=== PATIENT | male | born 1960 | race Caucasian/White ===

== ENCOUNTER 2019-07-01 09:45 | Day surgery (SDC) | payer BC ==
[~2019-07-01] VITALS: Ht 177.8 cm; Wt 70.9 kg
[~2019-07-01 09:45] MED LIST: ACET-2119 PO; OMEPRAZOLE PO; ONDA4TAB6 PO; SERT-153 PO; SUCR1TAB34 PO
[2019-07-01 10:00] VITALS: BP 156/85
[2019-07-01] MEDS ORDERED: fentaNYL/PF 50MCG/1 ML 2ML syringe ONE ×2 (10:02→10:03)
[2019-07-01] MEDS ORDERED: LIDOcaine Viscous 15ml cup ONE (10:03)
[2019-07-01] MEDS ORDERED: MIDAZolam 5mg/5ml vial ONE (10:03)
[2019-07-01] MEDS ORDERED: IBUPROFEN PO (10:27)
[2019-07-01] MEDS ORDERED: LACT10SO PO (10:28)
[2019-07-01 11:06] VITALS: BP 121/74
[2019-07-01 11:16] VITALS: BP 120/76
[2019-07-01 11:26] VITALS: BP 111/75
[2019-07-01 11:36] VITALS: BP 122/73
[2019-07-01 11:46] VITALS: BP 121/77
== END 2019-07-01 12:00 | disposition home or self-care (01) ==
LOC: GI LAB 09:45
PROVIDERS: ATTEND Internal Medicine Gastroenterology
DX: I85.00 Esophageal varices without bleeding (principal); K20.8 Other esophagitis; K76.6 Portal hypertension; K31.89 Other diseases of stomach and duodenum; K44.9 Diaphragmatic hernia without obstruction or gangrene; K57.10 Diverticulosis of small intestine without perforation or abscess without bleeding; K29.50 Unspecified chronic gastritis without bleeding
CPT/HCPCS: 43239; 99152; J2250; J3010; J7040; A4620

== ENCOUNTER 2024-01-27 10:42 | Emergency (ER) | payer BC ==
[~2024-01-27] VITALS: Ht 180.3 cm; Wt 70.5 kg
[~2024-01-27 10:42] MED LIST changes: +IBUPROFEN PO; +LACT-373 PO; -OMEPRAZOLE PO; -ONDA4TAB6 PO; -SERT-153 PO; -SUCR1TAB34 PO
[2024-01-27 10:50] VITALS: TEMP 98.4
[2024-01-27 11:27] LABS: BASOPHILS % (AUTO) 0.9 % (0-1); EOSINOPHILS % (AUTO) 0.6 % (0-6); HEMATOCRIT 44.5 % (42.0-52.0); HEMOGLOBIN 15.7 g/dl (14.0-17.9); LYMPHOCYTES % (AUTO) 23.7 % (21-51); MEAN CORPUSCULAR HEMOGLOBIN 36.2 PG (27.0-31.0); MEAN CORPUSCULAR HGB CONC 35.2 g/dL (33.0-36.5); MEAN PLATELET VOLUME 6.6 FL (7.4-10.4); MONOCYTES # (AUTO) 0.5 X10'3 (0-0.9); MONOCYTES % (AUTO) 11.4 % (2-12); NEUTROPHILS # (AUTO) 2.5 X10'3 (1.8-7.7); NEUTROPHILS % (AUTO) 63.4 % (42-75); PLATELET COUNT 174 X10'3 (140-440); RED BLOOD COUNT 4.32 X10'6 (4.70-6.10); RED CELL DISTRIBUTION WIDTH 13.3 % (11.5-14.5)
[2024-01-27 11:42] LABS: ANION GAP 10 (8-16); BILIRUBIN,TOTAL 1.4 MG/DL (0.1-1.0); BLOOD UREA NITROGEN 10 MG/DL (7-18); BUN/CREATININE RATIO 11.8 (10.0-20.0); CALCIUM 9.3 MG/DL (8.5-10.1); CHLORIDE 102 MMOL/L (99-107); CREATININE 0.85 MG/DL (0.60-1.10); GLUCOSE 85 MG/DL (70-104); POTASSIUM 3.6 MMOL/L (3.5-5.1); SODIUM 138 MMOL/L (135-145); TOTAL CARBON DIOXIDE 25.7 MMOL/L (24-32); eCRCL 87 ML/MIN; eGFR > 90 ML/MIN
[2024-01-27 11:43] LABS: ALANINE AMINOTRANSFERASE 47 U/L (12-78); ALBUMIN 3.1 G/DL (3.4-5.0); ALBUMIN/GLOBULIN RATIO 0.5 (1.1-1.5); ALKALINE PHOSPHATASE 167 IU/L (46-116); ASPARTATE AMINO TRANSFERASE 42 U/L (10-37); TOTAL PROTEIN 8.9 G/DL (6.4-8.2)
[2024-01-27 11:49] LABS: PRO BRAIN NATRIURETIC PEPTIDE 496 PG/ML (0-125)
[2024-01-27] MEDS ORDERED: ALBU8HFA INH (12:17)
[2024-01-27 12:20] VITALS: BP 151/85; PULSE 59; RESP 16; O2SAT 98
== END 2024-01-27 12:27 | disposition home or self-care (01) ==
LOC: ER 10:42
DX: R06.00 Dyspnea, unspecified (principal); F41.9 Anxiety disorder, unspecified; F32.A Depression, unspecified; Z98.890 Other specified postprocedural states; Z79.1 Long term (current) use of non-steroidal anti-inflammatories (NSAID)
CPT/HCPCS: 36415; 71045; 80053; 83880; 84484; 85025; 93005; 99285

== ENCOUNTER 2024-06-20 10:40 | Inpatient (IN) | payer BC ==
[~2024-06-20] VITALS: Ht 180.3 cm; Wt 69.0 kg
[2024-06-20 11:00] LABS: BASOPHILS % (AUTO) 1.4 % (0-1); EOSINOPHILS % (AUTO) 0.8 % (0-6); HEMOGLOBIN 14.6 g/dl (14.0-17.9); LYMPHOCYTES # (AUTO) 0.7 X10'3 (1.1-4.8); LYMPHOCYTES % (AUTO) 21.8 % (21-51); MEAN CORPUSCULAR HEMOGLOBIN 35.9 PG (27.0-31.0); MEAN CORPUSCULAR VOLUME 105.4 FL (78-98); MEAN PLATELET VOLUME 6.7 FL (7.4-10.4); MONOCYTES # (AUTO) 0.4 X10'3 (0-0.9); MONOCYTES % (AUTO) 11.2 % (2-12); NEUTROPHILS # (AUTO) 2.1 X10'3 (1.8-7.7); NEUTROPHILS % (AUTO) 64.8 % (42-75); PLATELET COUNT 122 X10'3 (140-440); RED BLOOD COUNT 4.08 X10'6 (4.70-6.10); WHITE BLOOD COUNT 3.3 X10'3 (4.5-11.0)
--- NOTE | 2024-06-20 11:16 | RADIOLOGY REPORT ---
CHEST RADIOGRAPH Indication: CP Technique: Single frontal view of the chest was obtained Comparison: DI CHEST,SINGLE VIEW on DOS: 01/27/24 FINDINGS: The cardiac silhouette is unremarkable. The lungs demonstrate no pulmonary airspace consolidation. Th e pulmonary vasculature is unremarkable. There is no pleural effusion.. There is no pneumothorax. Ao rtic atherosclerotic disease. IMPRESSION: 1. No pulmonary airspace consolidation.<< >>
[2024-06-20 11:22] LABS: ALANINE AMINOTRANSFERASE 37 U/L (12-78); ALBUMIN 3.1 G/DL (3.4-5.0); ALBUMIN/GLOBULIN RATIO 0.7 (1.1-1.5); ALKALINE PHOSPHATASE 220 IU/L (46-116); ANION GAP 6 (8-16); ASPARTATE AMINO TRANSFERASE 63 U/L (10-37); BILIRUBIN,TOTAL 1.3 MG/DL (0.1-1.0); BLOOD UREA NITROGEN 10 MG/DL (7-18); BUN/CREATININE RATIO 10.5 (10.0-20.0); CALCIUM 8.6 MG/DL (8.5-10.1); CHLORIDE 108 MMOL/L (99-107); CREATININE 0.95 MG/DL (0.60-1.10); GLUCOSE 83 MG/DL (70-104); POTASSIUM 3.4 MMOL/L (3.5-5.1); SODIUM 142 MMOL/L (135-145); TOTAL CARBON DIOXIDE 27.6 MMOL/L (24-32); TOTAL PROTEIN 7.6 G/DL (6.4-8.2); eCRCL 77 ML/MIN; eGFR 80 ML/MIN
[2024-06-20 11:27] LABS: PRO BRAIN NATRIURETIC PEPTIDE 405 PG/ML (0-125)
[2024-06-20 11:36] LABS: D-DIMER 2.21 MG/L FEU (0-0.50)
[2024-06-20] MEDS ORDERED: iohexol 350MG/ML 100ml bottle IV ONE (12:09)
--- NOTE | 2024-06-20 12:13 | ELECTROCARDIOGRAPH REPORT ---
[facility] Test Date: 2024-06-20 Test Time: 10:50:23 Pat Name: AJ TYLER Department: EMERGENCY ROOM Room: ED 4 Gender: M Python Programmer: LUIS ALBERTO : 1960 Requested By: ADIEL RALPH Order Number: [id number] Reading MD: Dr. Troy Jamil Measurements Intervals [place] Rate: 78 P: 4 OK: 164 QRS: 85 QRSD: 96 T: 66 QT: 416 QTc: 474 Interpretive Statements Sinus rhythm Multiple premature complexes, vent & supraven Low voltage, extremity leads Nonspecific repol abnormality, lateral leads Electronically Signed On 06-22-2024 15:44:[address] Troy Jamil Please click the below link to view image of tracing.
--- NOTE | 2024-06-20 13:09 | RADIOLOGY REPORT ---
CTA Chest with intravenous contrast INDICATION: Exertional dyspnea, elevated D-dimer COMPARISON: None TECHNIQUE: Multidetector spiral CTA of the chest was performed of the chest with intravenous contrast . PULMONARY ANGIOGRAPHY PROTOCOL was utilized using a bolus-tracking technique centered on the main p ulmonary artery. Axial, coronal and sagittal multiplanar and MIP reformats were performed. CONTRAST: Type of contrast: Omni 300 Contrast injected: 100 ml Radiation dose : Chest: CTDI volume is 12 mGy. Dose-length product is 457 mGy*cm The dose indicators for CT are the volume computed Tomography (CT) dose Index (CTDIvol) and the dose Length product (DLP), and are measured in units of mGy and mGy-cm, respectively. These indicators are not patient dose, but values generated from the CT scanner acquisition factors. The report includes radiation exposure data for exposures received during this examination. Findings: Pulmonary artery: Acute bilateral pulmonary emboli involving the main pulmonary arteries as well as both upper and lowe r lobe segmental branches. Large clot burden. No evidence of right heart strain. Filling defect in t he right atrium is likely mixing artifact. Lower neck: Normal thyroid. Lungs: Mild subpleural consolidation in the right lower lobe. Atelectasis and scarring in the lung ba ses. Heart/Vascular Structures: Normal heart size. No pericardial effusion. Lymph Nodes: No adenopathy Pleura: No pleural effusion or significant pneumothorax. Musculoskeletal: Chronic appearing compression deformity of L1. Soft tissues: Normal. Upper abdomen: Cirrhotic liver morphology. Perihepatic ascites. Cholelithiasis. Splenomegaly. IMPRESSION: 1. Acute bilateral pulmonary emboli. Large amount of thrombus. No evidence of right heart strain. Fi lling defect in the right atrium is thought to represent mixing artifact although right atrial thromb us is not excluded. 2. Mild subpleural consolidation in the right lower lung. 3. Cirrhotic liver morphology. Perihepatic ascites. Cholelithiasis. Splenomegaly. Critical Result: Pumonary Emboli Findings discussed with ADIEL RALPH at 06/20/2024 01:04 PM, and acknowledged receipt and under standing of the findings. HS:Y
[2024-06-20] MEDS ORDERED: heparin 10,000 units/1 ML INJ IV ONE (13:10)
[2024-06-20] MEDS ORDERED: heparin 10,000 units/1 ML INJ IV PRN (13:10)
[2024-06-20] MEDS: heparin 10,000 units/1 ML INJ IV ONE (13:36)
[2024-06-20] MEDS: heparin 25,000 UNIT/250ml bag 250 ML IV PRN (13:38)
[2024-06-20] MEDS: MESSAGE TO NURSING IV ONE ×2 (13:39→23:30)
[2024-06-20] MEDS ORDERED: ondansetron/PF 4mg/2ml inj IV PRN (13:45)
[2024-06-20] MEDS ORDERED: diphenhydrAMINE 50 mg/ml inj IV PRN (13:45)
[2024-06-20] MEDS ORDERED: magnesium sulf-water 4G/100mL 100 ML IV PRN (13:45)
[2024-06-20] MEDS ORDERED: HYDROcodone/acetaminophen 10/325mg tab PO PRN (13:45)
[2024-06-20] MEDS ORDERED: potassium Cl 20 mEq SR tablet PO PRN ×2 (13:45)
[2024-06-20] MEDS ORDERED: mag hydrox/Alum hydrox/simeth 30ml oral suspension PO PRN (13:45)
[2024-06-20] MEDS ORDERED: morphine 2 MG/ML inj. syringe IV PRN ×2 (13:45)
[2024-06-20] MEDS ORDERED: HYDROcodone/acetaminophen 5mg/325mg tablet PO PRN (13:45)
[2024-06-20] MEDS ORDERED: acetaminophen 325mg tablet PO PRN ×2 (13:45)
[2024-06-20] MEDS ORDERED: magnesium sulf-water 2g/50mL 50 ML IV PRN (13:45)
[2024-06-20] MEDS ORDERED: ondansetron 4mg rapidly disintigrating tab PO PRN (13:45)
[2024-06-20] MEDS ORDERED: diphenhydrAMINE 25mg capsule PO PRN (13:45)
[2024-06-20] MEDS ORDERED: magnesium Cl slow-release 64mg tablet PO PRN (13:45)
[2024-06-20] MEDS ORDERED: acetaminophen 650mg rectal suppository RC PRN (13:45)
[2024-06-20] MEDS ORDERED: bisacodyl 10mg suppository rectal RC PRN (13:45)
[2024-06-20] MEDS ORDERED: magnesium hydroxide 30ml (MOM) UD suspension PO PRN (13:45)
[2024-06-20] MEDS ORDERED: potassium Cl 40MEQ/1/2NS 520ml 520 ML IV PRN (13:45)
[2024-06-20] MEDS: potassium Cl 20mEq in NS 1,000 ML IV SCH (14:24)
[2024-06-20 14:38] LABS: BILIRUBIN,URINE NEGATIVE (Neg); CLARITY,URINE CLEAR (Clear); COLOR,URINE YELLOW (Yellow); GLUCOSE, URINE NEGATIVE (Neg); KETONES,URINE NEGATIVE (Neg); LEUKOCYTE ESTERASE ,URINE NEGATIVE (Neg); NITRITES, URINE NEGATIVE (Neg); OCCULT BLOOD,URINE NEGATIVE (Neg); PH,URINE 6.5 (4.8-8.0); PROTEIN,URINE NEGATIVE (Neg)
[2024-06-20 14:55] LABS: MAGNESIUM 1.8 MG/DL (1.5-2.4); PHOSPHORUS 3.9 MG/DL (2.3-4.5)
[2024-06-20 14:57] LABS: UA COLLECTION TYPE NON-SPECIFIED
[2024-06-20] MEDS ORDERED: AMOX-445 PO (14:58)
[2024-06-20 15:13] LABS: HEMOGLOBIN A1C 5.1 % (4.5-6.2)
--- NOTE | 2024-06-20 15:23 | VASCULAR REPORT ---
Bilateral lower extremity venous Doppler INDICATION: Bilateral lower extremity pain and shortness of breath TECHNIQUE: Duplex venous sonography was performed with real-time and flow sensitive images submitted for evaluation. FINDINGS: Normal phasic venous flow. Veins are fully compressible. No filling defects. IMPRESSION: 1. No evidence of deep vein thrombosis.
[2024-06-20 15:39] VITALS: BP 141/100; PULSE 90; RESP 15; TEMP 97.4; O2SAT 99
--- NOTE | 2024-06-20 16:00 | Physician Documentation ---
History of Present Illness ~ Chief Complaint: Shortness of Breath Stated Complaint: THROMBUS IN HEART Time Seen by MD: 11:05 Primary Medical Doctor: formerly [facility], 1928–1983khadijah Mode of Arrival: Ambulatory HPI This is a 63-year-old gentleman sent to us from Dr. Alex office after they discovered abnormal ultrasound of his heart on echocardiogram. There were concern on a clot in his heart. The gentleman subjective complaints include severe shortness a breath especially with exertion. No positional changes. The symptoms has been present for about a week. He also reports lower extremity swelling for the same duration of time. Does report chest discomfort but denies any proper pain. Denies any fever, chills, nausea, vomiting, diarrhea, abdominal pain. Medication Reconciliation Allergies: Coded Allergies: No Known Allergies (Unverified , 01/27/24) Scheduled Amoxicillin (Amoxicillin), 1 CAP PO TID, (Reported) Discontinued Medications Acetaminophen (Tylenol), 1 TABLET PO Q4HPRN PRN for pain, (Reported) Discontinued Reason: patient no longer taking Lactulose (Lactulose), 30 ML PO QAM, (Reported) Discontinued Reason: patient no longer taking [Ibuprofen], PO for pain, (Reported) Discontinued Reason: patient no longer taking Past Medical History Past Medical History: Anxiety, Depression Past Surgical History: orthopedic surgeries Alcohol Use: None Drug Use: none Lives In: Home Review of Systems ROS 10 point review of systems was performed and unless noted above in HPI is negative for acute process/complaint. Physical Exam Vital Signs: Temperature: 97.9, Source: Oral, Heart Rate: 92, Respiratory Rate: 17, BP: 150/95, Pulse Oximetry: 98, Weight: 69.000 Oxygen Flow Rate: 0 Physical Exam GENERAL: Awake, alert, oriented, GCS 15, no apparent distress, non-toxic appearing, answers questions, follows commands appropriately. HEENT: Atraumatic, normocephalic, pupils equal, extraocular muscles intact, sclerae anicteric, mucus membranes moist, oropharynx is clear, no stridor. NECK: supple, full active range of motion, trachea midline, no thyromegaly, no lymphadenopathy, no JVD. CARDIOVASCULAR: regular rate/rhythm, no murmurs/gallops/rubs, Pulses are 2+ in all extremities and symmetric. Capillary refill less than 2 seconds. PULMONARY: Nonlabored, good air movement ,no respiratory distress, speaking in full sentences, clear to auscultation bilaterally, no wheezing, no ronchi, no rales, no accessory muscle use. GASTROINTESTINAL: Soft, non-tender, non-distended, normal active bowel sounds, no organomegaly, no pulsatile masses, no CVA tenderness. NEUROLOGIC: Lucid with normal mental status. Normal facial symmetry. Moves all extremities symmetrically and with purpose. No truncal ataxia. Speech is fluid without evidence of dysarthria or aphasia, no focal deficits appreciated. MUSCULOSKELETAL: There is full range of motion of all extremities. There is no joint pain or joint swelling or joint erythema. There is no muscle pain or tenderness or swelling. EXTREMITIES: warm, well-perfused, no cyanosis, no clubbing, no edema, no acute deformities. Skin: warm, dry, no rashes or lesions, no jaundice, no petechiae orpurpura. No ecchymosis. PSYCHIATRIC: Normal affect, normal insight, normal concentration. Focused exam: [] Progress Results/Orders Results/Orders Orders - ADIEL RALPH DO Chest,Single View (06/20/24 11:02) Monitor (06/20/24 10:51) Saline Lock (06/20/24 10:51) Oxygen (06/20/24 10:51) Cta Chest Pe (06/20/24 12:25) Pt Inr (06/20/24 13:07) PTT (06/20/24 13:07) Cbc/Diff (06/20/24 13:07) Heparin 25,000 Unit/250ml Bag (Heparin 2 (06/20/24 13:10) Heparin 10,000 Unit/Ml 1ml (Heparin 10,0 (06/20/24 13:10) Cbc/Diff (06/21/24 03:00) Cbc/Diff (06/22/24 03:00) Cbc/Diff (06/23/24 03:00) Cbc/Diff (06/24/24 03:00) Cbc/Diff (06/25/24 03:00) Completed Orders - ADIEL RALPH DO Chest,Single View (06/20/24 11:02) Cbc/Diff (06/20/24 10:51) PBNP (06/20/24 10:51) Electrocardiogram (06/20/24 10:51) CMP (06/20/24 10:51) Hs Troponin I W Calculations (06/20/24 10:51) Hs Troponin I W Calculations (06/20/24 12:51) Hs Troponin I W Calculations (06/20/24 13:51) D-Dimer (06/20/24 11:05) Cta Chest Pe (06/20/24 12:25) Iohexol 350mg/Ml 100ml (Omnipaque 350mg/ (06/20/24 12:09) Heparin 10,000 Unit/Ml 1ml (Heparin 10,0 (06/20/24 13:25) Message To Nursing (06/20/24 13:30) Hgb A1c (06/20/24 10:49) MG (06/20/24 10:49) PHOS (06/20/24 10:49) Medications Received in ER Medications (Trade) Dose Ordered Sig/Andrew Route PRN Reason Start Time Stop Time Status Last Admin Dose Admin Heparin Sodium/ Dextrose 250 ml @ 12 mls/hr [id number] PRN IV TO MAINTAIN PTT WITHIN RANGE 06/20/24 13:10 06/20/24 13:38 12 MLS/HR (heparin 10,000 unit/ml 1ml inj) 5,500 units ONCE ONCE IV 06/20/24 13:25 06/20/24 13:26 DC 06/20/24 13:36 5,500 UNITS Potassium Chloride/Sodium Chloride 1,000 ml @ 100 mls/hr Q10H IV 06/20/24 13:45 06/20/24 14:24 100 MLS/HR Vital Signs 06/20/24 06/20/24 06/20/24 06/20/24 10:42 11:06 11:09 11:52 Temp 97.9 97.9 Pulse 61 77 68 Resp 17 16 16 13 B/P (MAP) 148/89 130/86 (101) 130/86 (101) Pulse Ox 100 99 98 O2 Flow Rate 0 0 0 06/20/24 06/20/24 13:04 14:00 Temp 97.9 Pulse 86 92 Resp 17 17 B/P (MAP) 130/86 (101) 150/95 (113) Pulse Ox 98 98 O2 Flow Rate 0 0 Laboratory Tests Test 06/20/24 10:49 06/20/24 13:26 06/20/24 13:51 06/20/24 14:20 White Blood Count 3.3 L Red Blood Count 4.08 L Hemoglobin 14.6 Hematocrit 43.0 Mean Corpuscular Volume 105.4 H Mean Corpuscular Hemoglobin 35.9 H Mean Corpuscular Hemoglobin Concent 34.0 Red Cell Distribution Width 16.0 H Platelet Count 122 L Mean Platelet Volume 6.7 L Neutrophils (%) (Auto) 64.8 Lymphocytes (%) (Auto) 21.8 Monocytes (%) (Auto) 11.2 Eosinophils (%) (Auto) 0.8 Basophils (%) (Auto) 1.4 H Neutrophils # (Auto) 2.1 Lymphocytes # (Auto) 0.7 L Monocytes # (Auto) 0.4 Eosinophils # (Auto) 0.0 Basophils # (Auto) 0.0 CBC Comment D-Dimer 2.21 H D-Dimer Comment Sodium Level 142 Potassium Level 3.4 L Chloride Level 108 H Carbon Dioxide Level 27.6 Anion Gap 6 L Blood Urea Nitrogen 10 Creatinine 0.95 Estimated GFR/1.73 m2 80 BUN/Creatinine Ratio 10.5 Glucose Level 83 Hemoglobin A1c 5.1 Calcium Level 8.6 Phosphorus Level 3.9 Magnesium Level 1.8 Total Bilirubin 1.3 H Aspartate Amino Transf (AST/SGOT) 63 H Alanine Aminotransferase (ALT/SGPT) 37 Alkaline Phosphatase 220 H Troponin I High Sensitivity 12 15 12 Pro-B-Type Natriuretic Peptide 405 H Total Protein 7.6 Albumin 3.1 L Globulin 4.5 H Albumin/Globulin Ratio 0.7 L Chemistry Comments Troponin I High Sens Percent Delta 25 0 Troponin I Hi Sens Absolute Change 3 0 Urine Specimen Description Non-specified Urine Color Yellow Urine Clarity Clear Urine pH 6.5 Urine Specific [place] <=1.005 Urine Protein Negative Urine Glucose (UA) Negative Urine Ketones Negative Urine Occult Blood Negative Urine Nitrite Negative Urine Bilirubin Negative Urine Urobilinogen 1.0 Urine Leukocyte Esterase Negative Urine Culture Indicated Not ind Volume Urine Centrifuged 10 ml Urine Comment Medical Decision Making Findings Facility Status: ED Holds, [facility] process The plan was discussed with the patient, who demonstrates clear understanding of the plan and is in agreement with the plan unless otherwise noted in the chart. All questions have been answered, all concerns were addressed unless otherwise documented. I was available throughout their ED stay for frequent reassessment and questions. Differential Diagnoses (considered and possible or likely): [DVT, PE, mural thrombus, atrial thrombus, ventricular thrombus, ACS, pneumonia,] ??Differential Diagnoses (considered and unlikely, not requiring evaluation currently): [Aortic/great vessels dissection was considered but it is unlikely based on absence of ripping, tearing, migratory chest pain, absence of syncope or focal neurologic deficits, physical examination indicating equal and symmetric pulses.] MDM Data Please see HPI for the following: Independent Historians and external Records Review. Historian: [Patient] Independent Historians: ?[Record review] Medication Management: [Reviewed medication list] Social History and determinants: [Reviewed] Please see the body of the note for the following: Any independent interpretations of ECG, imaging studies. All vitals signs/haemodynamics, ordered tests were independently reviewed and interpreted by myself. Nursing triage complaint and vitals reviewed, additional nursing notes were reviewed as available and I agree unless otherwise noted or documented in contradiction in the chart Vital Signs: Independently reviewed Labs: Independently interpreted Imaging: Independently interpreted Old Medical Records: Independently reviewed, see [facility] for relevant summary and information Pulse Oximetry: [92%] interpreted as [normal on room air] by me [Belt Turner: [Regular Rate, Regular rhythm, no ectopy, NSR] reviewed and interpreted by me] Additionally notably showing: [Hematologic workup notable for elevated D-dimer. CT shows bilateral PEs and a thrombus in the heart.] Tests considered but not ordered include: [Echo can be done on an inpatient basis as well as a vascular DVT] Social Determinants of Health Impact: Patient was evaluated in [facility], [facility] [place] healthcare due to below par ratio of patient to medical providers. [] Comorbid Conditions Impacting Present Evaluation and Care/Treatment: [See list] Management Discussions with other Healthcare Providers: [Hospitalist regarding admission] Treatment and Disposition Medication Management (Given or considered): [Heparin drip]. See EMR for details Consideration for Hospitalization/Escalation/Deescalation of Care: Admission for observation has been considered, and appears to be necessary for further management and evaluation of his bilateral PEs and the intracardiac thrombus ?ED Course:?[No clinical deterioration] ?Shared decision making:?[] Code status:?FULL Please see the full Electronic Medical Record for full details of nursing documentation, medications list, other records of complete past medical history and conditions, vital signs, laboratory studies, and any radiologic study interpretations by radiologists. Portions of this note were completed using [employer] dictation software and as a result there may exist minor errors in spelling. I have reviewed elements of past family and social history and agree as included in note. Departure Disposition: 09 ADMITTED INPATIENT Impression: Primary Impression: Bilateral pulmonary embolism Additional Impressions: Thrombus in heart chamber Exertional dyspnea Referrals: NO PRIMARY CARE PROVIDER (PCP) Critical Care Note Critical Care Note CRITICAL CARE TIME: [ 45] minutes Treatments/Evaluations: Close monitoring and treatment of unstable vital signs, cardiorespiratory, and neurologic status, while maintaining tight balance of fluid, respiratory, and cardiac interventions. This time includes discussing the case with the patient and the patient�s family. This time does not include all procedures stated elsewhere in this record. This time also includes reviewing old records, labs and radiological studies. This time includes examining and re- examining the patient. Additionally, this time also includes arranging care with admitting and consulting physicians. Signature Scribe Signature: No scribe Attestation: This note accurately reflects clinical decisions, work performed by myself, DO LOREE Correa NICHOLAS M DO June 20, 2024 16:00
[2024-06-20] MEDS ORDERED: LORazepam 2 mg/ml vial IV PRN (16:05)
[2024-06-20] MEDS ORDERED: dextrose 50%-water 50ml dispensing syringe IV PRN (16:05)
[2024-06-20] MEDS ORDERED: haloperidol lactate 5mg/ml inj IM PRN (16:05)
[2024-06-20] MEDS ORDERED: haloperidol 5mg tablet PO PRN (16:05)
--- NOTE | 2024-06-20 16:14 | HISTORY AND PHYSICAL ---
History & Physical Providers to CC ~ chief complaint, shortness of breath History of Present Illness Reason for Admit\Complaint: As above History of Present Illness This is a 63-year-old gentleman with a history of multiple medical problems including chronic alcoholism including active ongoing today, history of CHF ejection fraction unknown, history of liver cirrhosis secondary to alcohol abuse associated with thrombocytopenia, hypokalemia, splenomegaly, ascites, history of cholelithiasis, hypoalbuminemia, transaminitis, leukopenia, hypertension, presented today to emergency department chief complaint shortness of breath; in addition this is the patient who was sent to us from Dr. Alex office after they discovered abnormal ultrasound of his heart on echocardiogram. There were concern on a clot in his heart. The gentleman subjective complaints include severe shortness a breath especially with exertion. No positional changes. The symptoms has been present for about a week. He also reports lower extremity swelling for the same duration of time. Does report chest discomfort but denies any proper pain.Denies any fever, chills, nausea, vomiting, diarrhea, abdominal pain. Emergency department he was evaluated by physician was diagnosed with bilateral pulmonary embolus, intracardiac atrial thrombus, started on heparin infusion and decision was made to admit patient for further evaluation and treatment, no additional complaint or concern. Allergies: Coded Allergies: No Known Allergies (Unverified , 01/27/24) Active prescriptions I reviewed reconciled Home Medications Home Medications Active Reported Amoxicillin 500 Mg Capsule 1 Cap PO TID Past Medical History Past Medical History As in HPI Past Surgical History Surgical History Comment As in HPI Past Social History Social History Comment Positive for chronic alcohol abuse including currently, deny illicit drug use or tobacco use now, live with the family good social support Health Maintenance Health Maintenance Noncontributory ROS ROS Constitutional : no fever , no chills, or weakness. No diaphoresis. Allergic/Immunologic, no lymphadenopathy, no hives, no skin eruptions. Eyes, no recent visual changes, no eye pain, no photophobia. Ears, nose, mouth, throat, no sore throat, no nosebleed, no ear pain. Cardiovascular, no palpitations, skipped beats, chest pain, no peripheral edema, Respiratory, positive for dyspnea, orthopnea, no cough, hemoptysis, chest wall pain. Gastrointestinal, no abdominal pain, nausea, vomiting, constipation or diarrhea. : no dysuria, hematuria, pelvic pain, urethral d/c. Endocrine, no polyuria, polydipsia, recent unintentional weight gain or loss. Hematologic/Lymphatic, no petechiae, no enlarged lymph nodes, no bone pain. Integumentary, no rash, no skin lesions, Musculoskeletal, no muscle aches, or pain, no muscle cramps, no recent change in gait Neurological, no dizziness, no headache, no syncope, no paresthesia. Psychiatric, no delusions, visual hallucinations, or hearing hallucinations. ROS - in rest is as in HPI. Exam Vitals: Vital Signs Date Time Temp Pulse Resp B/P (MAP) Pulse Ox O2 Delivery O2 Flow Rate FiO2 06/20/24 15:52 86 06/20/24 14:00 17 150/95 (113) 98 0 06/20/24 13:04 97.9 Vital signs, stable ,afebrile. Pulse Oximetry reflects adequate oxygenation. BMI is twenty-one, weight 69 kg General: well developed, well nourished. Awake , alert, and oriented x4, resting comfortably in the bed, in no acute distress . Skin: Warm, dry, no pallor, no rash or petechiae. HEENT: Atraumatic, normocephalic, EOMI, anicteric sclera B; pink conjunctiva; PERRLA, normal oropharynx, moist oral and nasal mucosa. Tympanic membrane , nose , throat clear. Neck: Trachea midline. Supple, full range of motion, no JVD, bruit , hepatojugular reflex , lymphadenopathy or masses, or other lesions Cardiac: Regular rhythm, regular rate no murmurs, rubs, or gallops. Normal S1 and S2, no S3 noticed. PMI is normal. Respiratory: Equal breath sounds bilaterally, no tachypnea; lungs clear to auscultation bilaterally, no wheezing ,rub or rales, or crackles. Chest wall is symmetric and without deformity. No signs of trauma. Chest wall is nontender. No signs of respiratory distress. Resonance is normal upon percussion bilaterally. Gastrointestinal: Abdomen symmetric, non-distended, soft, non-tender, normal bowel sounds x4 quadrant, normoactive, no hepatosplenomegaly , no masses , no bruit, no flank pain bilaterally. No voluntary guarding, rebound, or rigidity. No tenderness to percussion. No pulsatile masses. Equal femoral pulses. No Dietz's sign or McBurney point tenderness. Back; no CVA tenderness bilaterally, no deformities. Neck and back are without deformity as well. No tenderness noted on palpation of the spinous processes. Spinous processes are midline. Cervical, thoracic, and lumbar paraspinal muscles are not tender and are without spasm. : normal external genitalia, without lesions, swelling, masses or tenderness. Musculoskeletal: Extremities, normal range of motion, non-tender, muscle strength 5/5 x 4. Negative Homans signs bilaterally on lower extremity. Distal pulses full symmetrical, no clubbing, cyanosis , edema. Neurological: Speech is clear, alert, and oriented x 4. No motor or sensory deficit, deep tendon reflexes normal, cerebellar intact. Cranial nerves II-XII intact. Psych: Alert and or appropriate, normal affect. Vascular: Good distal pulses, which are equal x4; capillary refill less than 2 seconds. Lymphatic, no lymphadenopathy. Diagnostic Data Last Recorded Lab Results: 06/20/24 1049 06/20/24 1049 Diagnostic Data: Laboratory Tests Test 06/20/24 10:49 D-Dimer 2.21 MG/L FEU (0-0.50) H D-Dimer Comment Advance Care Planning Advanced Care plannin - 30 Minutes Additional Plan Assessment Bilateral pulmonary embolus Intracardiac atrial thrombus Chronic alcohol abuse including currently Liver cirrhosis secondary to above Chronic CHF ejection fraction unknown, most probably diastolic Thrombocytopenia, leukopenia, transaminitis, ascites, splenomegaly secondary to cirrhosis of the liver Hypokalemia, hypomagnesemia Chronic pain syndrome secondary to L1 compression deformity Hypoalbuminemia History of cholelithiasis Plan Alcohol withdrawal protocol Heparin infusion Correct electrolytes Serial troponin EKG, serial BNP Additional lab work pending Bilateral lower leg ultrasound negative for DVT Substance abuse navigator consult Dr. Sue Alex team is on board Reconciled home medications DVT gastropathy prophylaxis addressed Sepsis Screening Reassessment Date: June 20, 2024 Date of Service: June 20, 2024 Billing Provider: SHARON GALDAMEZ MD Common Visit Codes: 61237-VIHWHGO INP/OBS CARE (HIGH) Secondary Visit Codes: 70371-[id number] CARE PLAN 30 MINUTES SHARON GALDAMEZ MD June 20, 2024 16:14
[2024-06-20] MEDS ORDERED: diazepam inj 5 MG/ML inj. IV PRN (16:35)
[2024-06-20 16:56] LABS: CREATINE KINASE 77 U/L (39-308); LIPASE 28 U/L (16-77); THYROID STIMULATING HORMONE 1.44 ulU/ml (0.34-4.50)
[2024-06-20 17:16] VITALS: RESP 15; O2SAT 99
[2024-06-20 18:00] VITALS: BP 127/85; PULSE 86; RESP 21; TEMP 97.3; O2SAT 96
[2024-06-20 20:00] VITALS: RESP 18; O2SAT 99
[2024-06-20] MEDS: K and/or MAG REPLACEMENT MC SCH (20:00)
[2024-06-20 20:26] LABS: BASOPHILS % (AUTO) 1.4 % (0-1); EOSINOPHILS % (AUTO) 1.1 % (0-6); HEMATOCRIT 42.2 % (42.0-52.0); HEMOGLOBIN 14.2 g/dl (14.0-17.9); LYMPHOCYTES # (AUTO) 0.7 X10'3 (1.1-4.8); LYMPHOCYTES % (AUTO) 23.8 % (21-51); MEAN CORPUSCULAR HEMOGLOBIN 35.5 PG (27.0-31.0); MEAN CORPUSCULAR HGB CONC 33.6 g/dL (33.0-36.5); MEAN CORPUSCULAR VOLUME 105.8 FL (78-98); MEAN PLATELET VOLUME 7.4 FL (7.4-10.4); MONOCYTES # (AUTO) 0.3 X10'3 (0-0.9); MONOCYTES % (AUTO) 9.6 % (2-12); NEUTROPHILS # (AUTO) 1.8 X10'3 (1.8-7.7); NEUTROPHILS % (AUTO) 64.1 % (42-75); PLATELET COUNT 119 X10'3 (140-440); RED BLOOD COUNT 3.99 X10'6 (4.70-6.10); RED CELL DISTRIBUTION WIDTH 16.4 % (11.5-14.5); WHITE BLOOD COUNT 2.8 X10'3 (4.5-11.0)
[2024-06-20 20:45] LABS: INR 1.5 INR; PROTHROMBIN TIME 14.6 SECONDS (9.0-12.0)
[2024-06-20] MEDS ORDERED: temazepam 15mg capsule PO PRN (21:00)
[2024-06-20 21:04] LABS: APTT > 139 SECONDS (22-32)
[2024-06-20] MEDS: thiamine 100mg/ml 2ml inj. IV SCH (21:34)
[2024-06-20] MEDS: docusate sod 100mg capsule PO SCH (21:34)
[2024-06-20 22:00] VITALS: BP 117/86; PULSE 75; RESP 19; TEMP 97.5; O2SAT 99
[2024-06-21] VITALS (8 sets, daily range): BP systolic 117–137; BP diastolic 77–88; PULSE 55–81; RESP 17–28; TEMP 97–97.6; O2SAT 98–100
[2024-06-21 01:56] LABS: BASOPHILS % (AUTO) 1.1 % (0-1); EOSINOPHILS % (AUTO) 1.1 % (0-6); HEMATOCRIT 41.8 % (42.0-52.0); HEMOGLOBIN 14.3 g/dl (14.0-17.9); LYMPHOCYTES # (AUTO) 0.6 X10'3 (1.1-4.8); MEAN CORPUSCULAR HEMOGLOBIN 35.9 PG (27.0-31.0); MEAN CORPUSCULAR HGB CONC 34.1 g/dL (33.0-36.5); MEAN CORPUSCULAR VOLUME 105.3 FL (78-98); MEAN PLATELET VOLUME 7.1 FL (7.4-10.4); MONOCYTES # (AUTO) 0.2 X10'3 (0-0.9); MONOCYTES % (AUTO) 9.9 % (2-12); NEUTROPHILS # (AUTO) 1.5 X10'3 (1.8-7.7); NEUTROPHILS % (AUTO) 60.9 % (42-75); PLATELET COUNT 114 X10'3 (140-440); RED BLOOD COUNT 3.97 X10'6 (4.70-6.10); RED CELL DISTRIBUTION WIDTH 15.9 % (11.5-14.5); WHITE BLOOD COUNT 2.4 X10'3 (4.5-11.0)
[2024-06-21 02:08] LABS: ALBUMIN 2.6 G/DL (3.4-5.0); ANION GAP 11 (8-16); BLOOD UREA NITROGEN 10 MG/DL (7-18); BUN/CREATININE RATIO 12.7 (10.0-20.0); CALCIUM 8.5 MG/DL (8.5-10.1); CHLORIDE 112 MMOL/L (99-107); CHOL/HDL RATIO 2.6 (0.00-4.99); CHOLESTEROL 115 MG/DL (0-200); CREATININE 0.79 MG/DL (0.60-1.10); GLUCOSE 90 MG/DL (70-104); HDL CHOLESTEROL 45 MG/DL (35-60); LDL CHOLESTEROL 64 MG/DL (50-100); MAGNESIUM 1.7 MG/DL (1.5-2.4); POTASSIUM 3.8 MMOL/L (3.5-5.1); SODIUM 144 MMOL/L (135-145); TOTAL CARBON DIOXIDE 21.5 MMOL/L (24-32); TRIGLYCERIDES 33 MG/DL (20-135); eCRCL 92 ML/MIN; eGFR > 90 ML/MIN
[2024-06-21] MEDS: MESSAGE TO NURSING IV ONE ×4 (02:15→20:28)
[2024-06-21 02:42] LABS: PLATELET ESTIMATE DECREASED; TOTAL CELLS COUNTED 100
[2024-06-21] MEDS: pantoprazole 40mg Tablet.DR PO SCH (07:57)
[2024-06-21] MEDS: folic acid 1mg/0.2ml inj IV SCH (07:58)
--- NOTE | 2024-06-21 20:34 | PROGRESS NOTE ---
Daily Progress Note Providers to CC ~ feels better today Central Line/PICC still needed: No Heart-Non Protocol Heart Indications Met/Not Met: F/C Indications Not Met Antibiotic Timeout Antibiotic Ordered?: No Subjective As above Objective Vital Signs Date Time Temp Pulse Resp B/P (MAP) Pulse Ox O2 Delivery O2 Flow Rate FiO2 06/21/24 15:00 97.5 72 28 117/77 (90) 98 Room Air 06/20/24 14:00 0 Vital signs, stable ,afebrile. Pulse Oximetry reflects adequate oxygenation. General: well developed, well nourished. Awake , alert, and oriented x4, resting comfortably in the bed, in no acute distress . Skin: Warm, dry, no pallor, no rash or petechiae. HEENT: Atraumatic, normocephalic, EOMI, anicteric sclera B; pink conjunctiva; PERRLA, normal oropharynx, moist oral and nasal mucosa. Tympanic membrane , nose , throat clear. Neck: Trachea midline. Supple, full range of motion, no JVD, bruit , hepatojugular reflex , lymphadenopathy or masses, or other lesions Cardiac: Regular rhythm, regular rate no murmurs, rubs, or gallops. Normal S1 and S2, no S3 noticed. PMI is normal. Respiratory: Equal breath sounds bilaterally, no tachypnea; lungs clear to auscultation bilaterally, no wheezing ,rub or rales, or crackles. Chest wall is symmetric and without deformity. No signs of trauma. Chest wall is nontender. No signs of respiratory distress. Resonance is normal upon percussion bilaterally. Gastrointestinal: Abdomen symmetric, non-distended, soft, non-tender, normal bowel sounds x4 quadrant, normoactive, no hepatosplenomegaly , no masses , no bruit, no flank pain bilaterally. No voluntary guarding, rebound, or rigidity. No tenderness to percussion. No pulsatile masses. Equal femoral pulses. No Dietz's sign or McBurney point tenderness. Back; no CVA tenderness bilaterally, no deformities. Neck and back are without deformity as well. No tenderness noted on palpation of the spinous processes. Spinous processes are midline. Cervical, thoracic, and lumbar paraspinal muscles are not tender and are without spasm. : normal external genitalia, without lesions, swelling, masses or tenderness. Musculoskeletal: Extremities, normal range of motion, non-tender, muscle strength 5/5 x 4. Negative Homans signs bilaterally on lower extremity. Distal pulses full symmetrical, no clubbing, cyanosis , edema. Neurological: Speech is clear, alert, and oriented x 4. No motor or sensory deficit, deep tendon reflexes normal, cerebellar intact. Cranial nerves II-XII intact. Psych: Alert and or appropriate, normal affect. Vascular: Good distal pulses, which are equal x4; capillary refill less than 2 seconds. Lymphatic, no lymphadenopathy. Result Diagram: 06/21/2413406/21/24134 Coagulation Studies Laboratory Tests Test 06/20/24 10:49 06/20/24 20:08 06/21/24 19:33 D-Dimer 2.21 MG/L FEU (0-0.50) H D-Dimer Comment Prothrombin Time 14.6 SECONDS (9.0-12.0) H INR International Normalized Ratio 1.5 INR Activated Partial Thromboplast Time > 139 SECONDS (22-32) *H APTT (Heparin Protocol) 77 SECONDS (45-75) H Coagulation Comments Problem\Assessment\Plan Assessment/plan Bilateral pulmonary embolus Intracardiac atrial thrombus Chronic alcohol abuse including currently Liver cirrhosis secondary to above Chronic CHF ejection fraction unknown, most probably diastolic Thrombocytopenia, leukopenia, transaminitis, ascites, splenomegaly secondary to cirrhosis of the liver Hypokalemia, hypomagnesemia Chronic pain syndrome secondary to L1 compression deformity Hypoalbuminemia History of cholelithiasis Plan Alcohol withdrawal protocol Heparin infusion Correct electrolytes Serial troponin EKG, serial BNP Additional lab work pending Bilateral lower leg ultrasound negative for DVT Substance abuse navigator consult Dr. Sue Alex team is on board Reconciled home medications DVT gastropathy prophylaxis addressed Sepsis Screening Reassessment Date: June 21, 2024 Date of Service: June 21, 2024 Billing Provider: SHARON GALDAMEZ MD Common Visit Codes: [id number] INP/OBS CARE(HIGH) SHARON GALDAMEZ MD June 21, 2024 20:33
[2024-06-22] VITALS (8 sets, daily range): BP systolic 118–128; BP diastolic 58–86; PULSE 67–77; RESP 14–19; TEMP 97.4–98; O2SAT 95–99
[2024-06-22 03:00] LABS: BASOPHILS % (AUTO) 1.1 % (0-1); EOSINOPHILS % (AUTO) 0.9 % (0-6); HEMATOCRIT 41.1 % (42.0-52.0); HEMOGLOBIN 13.9 g/dl (14.0-17.9); LYMPHOCYTES # (AUTO) 0.7 X10'3 (1.1-4.8); LYMPHOCYTES % (AUTO) 24.3 % (21-51); MEAN CORPUSCULAR HEMOGLOBIN 35.6 PG (27.0-31.0); MEAN CORPUSCULAR HGB CONC 33.9 g/dL (33.0-36.5); MEAN CORPUSCULAR VOLUME 104.9 FL (78-98); MONOCYTES # (AUTO) 0.3 X10'3 (0-0.9); MONOCYTES % (AUTO) 9.5 % (2-12); NEUTROPHILS # (AUTO) 1.8 X10'3 (1.8-7.7); NEUTROPHILS % (AUTO) 64.2 % (42-75); PLATELET COUNT 112 X10'3 (140-440); RED BLOOD COUNT 3.91 X10'6 (4.70-6.10); RED CELL DISTRIBUTION WIDTH 16.1 % (11.5-14.5); WHITE BLOOD COUNT 2.8 X10'3 (4.5-11.0)
[2024-06-22 03:10] LABS: ALBUMIN 2.6 G/DL (3.4-5.0); ANION GAP 11 (8-16); BLOOD UREA NITROGEN 12 MG/DL (7-18); CALCIUM 8.7 MG/DL (8.5-10.1); CHLORIDE 110 MMOL/L (99-107); GLUCOSE 95 MG/DL (70-104); MAGNESIUM 1.8 MG/DL (1.5-2.4); POTASSIUM 3.9 MMOL/L (3.5-5.1); SODIUM 143 MMOL/L (135-145); TOTAL CARBON DIOXIDE 21.9 MMOL/L (24-32); eCRCL 91 ML/MIN; eGFR > 90 ML/MIN
[2024-06-22] MEDS: MESSAGE TO NURSING IV ONE ×4 (04:12→22:40)
[2024-06-22] MEDS ORDERED: LORazepam 2 mg/ml vial IV PRN (16:05)
[2024-06-22] MEDS ORDERED: LORazepam 1 MG tablet PO PRN (16:05)
--- NOTE | 2024-06-22 16:40 | CONSULTATION REPORT ---
History of Present Illness Providers to CC CC: GASTON ALEX MD ~ Reason for Admit\Admit Dx: Cardiology Consultation Refering MD: Hospitalist/Resident Service History of Present Illness 63-year-old gentleman with a history of current chronic alcoholism with cirrhosis, thrombocytopenia, hypokalemia, splenomegaly, ascites, cholelithiasis, hypoalbuminemia, transaminitis, leukopenia, and hypertension. He was at Dr. Alex's clinic on 06/20/24 undergoing a routine echocardiogram when a significant thrombus was noted in the right atrium. He was having associated SOB/dysnea with exertion x1 week, so he was sent to the ED for further evaluation and IV heparin. Further evaluation by CT revealed bilateral pulmonary emboli, with a large clot burden. He remains on IV heparin. He denies SOB at rest, denies chest pain and other ischemic symptoms. Allergies: Coded Allergies: No Known Allergies (Unverified , 01/27/24) Active prescriptions Cardiac medications: Heparin drip per PTT protocol. Home Medications Home Medications Active Reported Amoxicillin 500 Mg Capsule 1 Cap PO TID Past Medical History Medical History Comment See HPI Past Surgical History Surgical History Comment No history of CV surgery or procedures. Past Family History Family History Comment Non-contributory Past Social History Social History Comment Chronic ETOH. Denies illicit drugs or nicotine. Lives at home with family. Physical Exam Last Vital Signs Recorded: Temperature: 97.9, Source: Oral, Heart Rate: 77, Respiratory Rate: 14, BP: 128/58, Pulse Oximetry: 95, Weight: 69.000 General Appearance: alert, no apparent distress EENT: PERRL/EOMI Neck: normal inspection Respiratory: lungs clear, no respiratory distress Chest: no accessory muscle use Cardiovascular: normal peripheral pulses, no edema Peripheral Pulses: 2+ radial (R), 2+ radial (L), 2+ dorsalis pedis (R), 2+ dorsalis pedis (L) Gastrointestinal: non-tender, bowels sounds present Back: no CVA tenderness Extremities: normal range of motion Neurologic: oriented x4, memory intact Psychiatric: normal mood/affect Skin: normal color, warm/dry Lymphatic: no adenopathy Review of Systems All Other Systems at this time: Reviewed and Negative ROS ROS reviewed, all negative except those specifically stated in HPI. Results EKG EKG NSR, with PVC's. N/S T wave abnormality V5/V6. Echocardiogram Echocardiogram RA thrombus noted on TTE at Dr. Alex's outpatient clinic. Cardiac Stress Test Cardiac Stress Test N/A Other Other Chest CT: 1. Acute bilateral pulmonary emboli. Large amount of thrombus. No evidence of right heart strain. Filling defect in the right atrium is thought to represent mixing artifact although right atrial thrombus is not excluded. 2. Mild subpleural consolidation in the right lower lung. 3. Cirrhotic liver morphology. Perihepatic ascites. Cholelithiasis. Splenomegaly. Vascular ultrasound LE venous: 1. No evidence of deep vein thrombosis. Diagram Lab Result Diagram: 06/22/24 0240 06/22/24 0240 Assessment/Plan Additional Plan 63-year-old man with a history of current chronic alcoholism with cirrhosis, thrombocytopenia, hypokalemia, and hypertension. Presented to the ED with SOB/dyspnea with minimal exertion. He was noted to have thrombus in the right atrium on echocardiogram at Dr. Alex's clinic. Chest CT revealed bilateral pulmonary emboli with a high clot burden. He has been on IV Heparin for two days and his symptoms have normalized. Thrombus in Right Atrium: Bilateral Pulmonary Emboli: -Continue IV heparin per protocol through the night. -Start Eliquis 5mg BID at 0800 on 06/23/24, then D/C heparin. -Discharge on Eliquis 06/23/24. Follow up as outpatient at Dr. Alex's clinic within 14 days of discharge. This plan was discussed with supervising physician, Dr. Asael Zarate, who is in agreement. Supervising MD Supervising Physician: MIGUEL A Silva June 22, 2024 16:39
--- NOTE | 2024-06-22 21:06 | PROGRESS NOTE ---
Daily Progress Note Providers to CC Feels better today, resting comfortably in the bed ~ Central Line/PICC still needed: No Heart-Non Protocol Heart Indications Met/Not Met: F/C Indications Not Met Antibiotic Timeout Antibiotic Ordered?: No MRSA Education MRSA Education Provided to pt: No Subjective As above Objective Vital Signs Date Time Temp Pulse Resp B/P (MAP) Pulse Ox O2 Delivery O2 Flow Rate FiO2 06/22/24 18:30 73 06/22/24 15:00 97.9 14 128/58 (81) 95 Room Air 06/20/24 14:00 0 Vital signs, stable ,afebrile. Pulse Oximetry reflects adequate oxygenation. General: well developed, well nourished. Awake , alert, and oriented x4, resting comfortably in the bed, in no acute distress . Skin: Warm, dry, no pallor, no rash or petechiae. HEENT: Atraumatic, normocephalic, EOMI, anicteric sclera B; pink conjunctiva; PERRLA, normal oropharynx, moist oral and nasal mucosa. Tympanic membrane , nose , throat clear. Neck: Trachea midline. Supple, full range of motion, no JVD, bruit , hepatojugular reflex , lymphadenopathy or masses, or other lesions Cardiac: Regular rhythm, regular rate no murmurs, rubs, or gallops. Normal S1 and S2, no S3 noticed. PMI is normal. Respiratory: Equal breath sounds bilaterally, no tachypnea; lungs clear to auscultation bilaterally, no wheezing ,rub or rales, or crackles. Chest wall is symmetric and without deformity. No signs of trauma. Chest wall is nontender. No signs of respiratory distress. Resonance is normal upon percussion bilaterally. Gastrointestinal: Abdomen symmetric, non-distended, soft, non-tender, normal bowel sounds x4 quadrant, normoactive, no hepatosplenomegaly , no masses , no bruit, no flank pain bilaterally. No voluntary guarding, rebound, or rigidity. No tenderness to percussion. No pulsatile masses. Equal femoral pulses. No Dietz's sign or McBurney point tenderness. Back; no CVA tenderness bilaterally, no deformities. Neck and back are without deformity as well. No tenderness noted on palpation of the spinous processes. Spinous processes are midline. Cervical, thoracic, and lumbar paraspinal muscles are not tender and are without spasm. : normal external genitalia, without lesions, swelling, masses or tenderness. Musculoskeletal: Extremities, normal range of motion, non-tender, muscle strength 5/5 x 4. Negative Homans signs bilaterally on lower extremity. Distal pulses full symmetrical, no clubbing, cyanosis , edema. Neurological: Speech is clear, alert, and oriented x 4. No motor or sensory deficit, deep tendon reflexes normal, cerebellar intact. Cranial nerves II-XII intact. Psych: Alert and or appropriate, normal affect. Vascular: Good distal pulses, which are equal x4; capillary refill less than 2 seconds. Lymphatic, no lymphadenopathy. Result Diagram: 06/22/24 0240 06/22/24 0240 Coagulation Studies Laboratory Tests Test 06/20/24 10:49 06/20/24 20:08 06/22/24 15:03 D-Dimer 2.21 MG/L FEU (0-0.50) H D-Dimer Comment Prothrombin Time 14.6 SECONDS (9.0-12.0) H INR International Normalized Ratio 1.5 INR Activated Partial Thromboplast Time > 139 SECONDS (22-32) *H APTT (Heparin Protocol) 65 SECONDS (45-75) Coagulation Comments Problem\Assessment\Plan Assessment/plan Bilateral pulmonary embolus Intracardiac atrial thrombus Chronic alcohol abuse including currently Liver cirrhosis secondary to above Chronic CHF ejection fraction unknown, most probably diastolic Thrombocytopenia, leukopenia, transaminitis, ascites, splenomegaly secondary to cirrhosis of the liver Hypokalemia, hypomagnesemia Chronic pain syndrome secondary to L1 compression deformity Hypoalbuminemia History of cholelithiasis Plan Alcohol withdrawal protocol We will start on Eliquis tomorrow morning Correct electrolytes Serial troponin EKG, serial BNP Additional lab work pending Bilateral lower leg ultrasound negative for DVT Substance abuse navigator consult Dr. Sue Alex team is on board awaiting consultation Reconciled home medications DVT gastropathy prophylaxis addressed Sepsis Screening Reassessment Date: June 22, 2024 Date of Service: June 22, 2024 Billing Provider: SHARON GALDAMEZ MD Common Visit Codes: [id number] INP/OBS CARE(HIGH) SHARON GALDAMEZ MD June 22, 2024 21:06
[2024-06-23 02:00] VITALS: BP 122/78; PULSE 74; RESP 20; TEMP 97.4; O2SAT 100
[2024-06-23 03:33] LABS: BASOPHILS % (AUTO) 0.7 % (0-1); EOSINOPHILS % (AUTO) 1.1 % (0-6); HEMATOCRIT 39.7 % (42.0-52.0); HEMOGLOBIN 13.5 g/dl (14.0-17.9); LYMPHOCYTES # (AUTO) 0.5 X10'3 (1.1-4.8); LYMPHOCYTES % (AUTO) 18.8 % (21-51); MEAN CORPUSCULAR HEMOGLOBIN 35.7 PG (27.0-31.0); MEAN PLATELET VOLUME 6.7 FL (7.4-10.4); MONOCYTES # (AUTO) 0.3 X10'3 (0-0.9); MONOCYTES % (AUTO) 9.8 % (2-12); NEUTROPHILS % (AUTO) 69.6 % (42-75); PLATELET COUNT 105 X10'3 (140-440); RED BLOOD COUNT 3.78 X10'6 (4.70-6.10); RED CELL DISTRIBUTION WIDTH 15.9 % (11.5-14.5); WHITE BLOOD COUNT 2.8 X10'3 (4.5-11.0)
[2024-06-23 03:43] LABS: ALBUMIN 2.4 G/DL (3.4-5.0); ANION GAP 11 (8-16); BLOOD UREA NITROGEN 13 MG/DL (7-18); BUN/CREATININE RATIO 16.3 (10.0-20.0); CALCIUM 8.5 MG/DL (8.5-10.1); CHLORIDE 109 MMOL/L (99-107); GLUCOSE 100 MG/DL (70-104); MAGNESIUM 1.6 MG/DL (1.5-2.4); POTASSIUM 3.8 MMOL/L (3.5-5.1); SODIUM 143 MMOL/L (135-145); TOTAL CARBON DIOXIDE 22.7 MMOL/L (24-32); eCRCL 91 ML/MIN; eGFR > 90 ML/MIN
[2024-06-23 03:46] LABS: APTT 48 SECONDS (22-32)
[2024-06-23] MEDS: MESSAGE TO NURSING IV ONE (04:37)
[2024-06-23 06:00] VITALS: BP 134/82; PULSE 83; RESP 18; TEMP 97.4; O2SAT 97
[2024-06-23] MEDS: apixaban 5mg tablet PO SCH (07:50)
[2024-06-23 08:00] VITALS: RESP 18; O2SAT 97
[2024-06-23 11:00] VITALS: BP 115/78; PULSE 63; RESP 16; TEMP 97.2; O2SAT 98
[2024-06-23] MEDS ORDERED: APIX5TAB3 PO (12:39)
[2024-06-23 14:19] VITALS: BP 120/75; PULSE 69; RESP 15; TEMP 98.1; O2SAT 97
--- NOTE | 2024-06-23 20:47 | DISCHARGE SUMMARY ---
Discharge Summary Providers to No new complaint today, feels fine, cleared for discharge by medicaid eligibility specialist ~ Discharge Summary Assessment Bilateral pulmonary embolus Intracardiac atrial thrombus Chronic alcohol abuse including currently Liver cirrhosis secondary to above Chronic CHF ejection fraction unknown, most probably diastolic Thrombocytopenia, leukopenia, transaminitis, ascites, splenomegaly secondary to cirrhosis of the liver Hypokalemia, hypomagnesemia Chronic pain syndrome secondary to L1 compression deformity Hypoalbuminemia History of cholelithiasis Admission Diagnosis: B PE Admission Diagnosis Comment: Bilateral pulmonary embolus Intracardiac atrial thrombus Chronic alcohol abuse including currently Liver cirrhosis secondary to above Chronic CHF ejection fraction unknown, most probably diastolic Thrombocytopenia, leukopenia, transaminitis, ascites, splenomegaly secondary to cirrhosis of the liver Hypokalemia, hypomagnesemia Chronic pain syndrome secondary to L1 compression deformity Hypoalbuminemia History of cholelithiasis Hospital Course DATE OF ADMISSION: June 20, 2024 DATE OF DISCHARGE: June 2309/2024 Discharge Diagnosis\Comment: Bilateral pulmonary embolus Intracardiac atrial thrombus Chronic alcohol abuse including currently Liver cirrhosis secondary to above Chronic CHF ejection fraction unknown, most probably diastolic Thrombocytopenia, leukopenia, transaminitis, ascites, splenomegaly secondary to cirrhosis of the liver Hypokalemia, hypomagnesemia Chronic pain syndrome secondary to L1 compression deformity Hypoalbuminemia History of cholelithiasis Operations\Procedures: Non Consultants: Cost Engineer Complications: Non Condition on DC: Stable Discharge Summary: This is a 63-year-old gentleman with a history of multiple medical problems including chronic alcoholism including active ongoing today, history of CHF ejection fraction unknown, history of liver cirrhosis secondary to alcohol abuse associated with thrombocytopenia, hypokalemia, splenomegaly, ascites, history of cholelithiasis, hypoalbuminemia, transaminitis, leukopenia, hypertension, presented today to emergency department chief complaint shortness of breath; in addition this is the patient who was sent to us from Dr. Alex office after they discovered abnormal ultrasound of his heart on echocardiogram. There were concern on a clot in his heart. The gentleman subjective complaints include severe shortness a breath especially with exertion. No positional changes. The symptoms has been present for about a week. He also reports lower extremity swelling for the same duration of time. Does report chest discomfort but denies any proper pain.Denies any fever, chills, nausea, vomiting, diarrhea, abdominal pain. Emergency department he was evaluated by physician was diagnosed with bilateral pulmonary embolus, intracardiac atrial thrombus, started on heparin infusion and decision was made to admit patient for further evaluation and treatment, no additional complaint or concern. After admission patient was extensively evaluated and treated, he feels fine today was cleared by medicaid eligibility specialist for discharge, medication reconciled, follow-up PCP and Cardiology in two days, recommended to return to emergency department if condition worsens, today on physical exam , Vital signs, stable ,afebrile. Pulse Oximetry reflects adequate oxygenation. General: well developed, well nourished. Awake , alert, and oriented x4, resting comfortably in the bed, in no acute distress . Skin: Warm, dry, no pallor, no rash or petechiae. HEENT: Atraumatic, normocephalic, EOMI, anicteric sclera B; pink conjunctiva; PERRLA, normal oropharynx, moist oral and nasal mucosa. Tympanic membrane , nose , throat clear. Neck: Trachea midline. Supple, full range of motion, no JVD, bruit , hepatojugular reflex , lymphadenopathy or masses, or other lesions Cardiac: Regular rhythm, regular rate no murmurs, rubs, or gallops. Normal S1 and S2, no S3 noticed. PMI is normal. Respiratory: Equal breath sounds bilaterally, no tachypnea; lungs clear to auscultation bilaterally, no wheezing ,rub or rales, or crackles. Chest wall is symmetric and without deformity. No signs of trauma. Chest wall is nontender. No signs of respiratory distress. Resonance is normal upon percussion bilaterally. Gastrointestinal: Abdomen symmetric, non-distended, soft, non-tender, normal bowel sounds x4 quadrant, normoactive, no hepatosplenomegaly , no masses , no bruit, no flank pain bilaterally. No voluntary guarding, rebound, or rigidity. No tenderness to percussion. No pulsatile masses. Equal femoral pulses. No Dietz's sign or McBurney point tenderness. Back; no CVA tenderness bilaterally, no deformities. Neck and back are without deformity as well. No tenderness noted on palpation of the spinous processes. Spinous processes are midline. Cervical, thoracic, and lumbar paraspinal muscles are not tender and are without spasm. : normal external genitalia, without lesions, swelling, masses or tenderness. Musculoskeletal: Extremities, normal range of motion, non-tender, muscle strength 5/5 x 4. Negative Homans signs bilaterally on lower extremity. Distal pulses full symmetrical, no clubbing, cyanosis , edema. Neurological: Speech is clear, alert, and oriented x 4. No motor or sensory deficit, deep tendon reflexes normal, cerebellar intact. Cranial nerves II-XII intact. Psych: Alert and or appropriate, normal affect. Vascular: Good distal pulses, which are equal x4; capillary refill less than 2 seconds. Lymphatic, no lymphadenopathy. *Problems/Diagnosis: (1) Bilateral pulmonary embolism Status: Acute (2) Thrombus in heart chamber Status: Acute Total Time Spent on D/C: > 30 Minutes Date of Service: June 23, 2024 Billing Provider: SHARON GALDAMEZ MD Common Visit Codes: [id number]/OBS DISCH DAY >30min SHARON GALDAMEZ MD June 23, 2024 20:47
[2024-06-24] MEDS ORDERED: folic acid 1mg tablet PO SCH (08:00)
[2024-06-24] MEDS ORDERED: thiamine 100mg tablet PO SCH (08:00)
[2024-06-24] MEDS ORDERED: LORazepam 2 mg/ml vial IV PRN (16:05)
== END 2024-06-23 14:25 | disposition home or self-care (01) | DRG 176 ==
LOC: ER 10:40 → UNDOADMIN 13:55 → PCU 3S 13:55 → ED HOLD 13:55
PROVIDERS: ADMIT Family Medicine; ATTEND Family Medicine
PROC: B32T1ZZ Computerized Tomography (CT Scan) of Left Pulmonary Artery using Low Osmolar Contrast (ICD-10-PCS; principal; 2024-06-20)
PROC: B3201ZZ Computerized Tomography (CT Scan) of Thoracic Aorta using Low Osmolar Contrast (ICD-10-PCS; 2024-06-20)
PROC: B32S1ZZ Computerized Tomography (CT Scan) of Right Pulmonary Artery using Low Osmolar Contrast (ICD-10-PCS; 2024-06-20)
DX: I26.99 Other pulmonary embolism without acute cor pulmonale (principal); I50.32 Chronic diastolic (congestive) heart failure; E44.1 Mild protein-calorie malnutrition; R65.10 Systemic inflammatory response syndrome (SIRS) of non-infectious origin without acute organ dysfunction; I51.3 Intracardiac thrombosis, not elsewhere classified; D69.6 Thrombocytopenia, unspecified; K70.31 Alcoholic cirrhosis of liver with ascites; E78.5 Hyperlipidemia, unspecified; E87.6 Hypokalemia; F41.9 Anxiety disorder, unspecified; F32.A Depression, unspecified; E83.42 Hypomagnesemia; I11.0 Hypertensive heart disease with heart failure; G89.4 Chronic pain syndrome; F10.20 Alcohol dependence, uncomplicated; D72.819 Decreased white blood cell count, unspecified; R16.1 Splenomegaly, not elsewhere classified; Z79.899 Other long term (current) drug therapy; Z68.21 Body mass index [BMI] 21.0-21.9, adult
CPT/HCPCS: 36415; 71045; 71275; 80048; 80053; 80061; 81003; 82550; 83036; 83690; 83735; 83880; 84100; 84443; 84484; 85007; 85025; 85379; 85610; 85730; 87081; 93005; 93970; 96365; 96375; 96376; 97161; 97530; 99291; G0378; J1644; J3411; J3480; J3490; Q9967

== ENCOUNTER 2024-06-25 03:00 | Emergency (ER) | payer BC ==
[~2024-06-25] VITALS: Ht 180.3 cm; Wt 68.0 kg
[~2024-06-25 03:00] MED LIST changes: -ACET-2119 PO; +AMOX-445 PO; +APIX5TAB3 PO; -IBUPROFEN PO; -LACT-373 PO
--- NOTE | 2024-06-25 03:12 | ELECTROCARDIOGRAPH REPORT ---
[facility] Test Date: 2024-06-25 Test Time: 03:10:46 Pat Name: AJ TYLER Department: [facility] Patient ID: [id number] Room: Gender: M Tire Adjuster: : 1960 Requested By: ADIEL NOBLE Order Number: [id number] Reading MD: Measurements Intervals Ellinger Rate: 91 P: 46 MS: 189 QRS: 132 QRSD: 86 T: 54 QT: 372 QTc: 458 Interpretive Statements Sinus rhythm Atrial premature complex Right axis deviation Low voltage, precordial leads Probable anteroseptal infarct, old Please click the below link to view image of tracing.
[2024-06-25 03:29] LABS: HEMATOCRIT 41.9 % (42.0-52.0); HEMOGLOBIN 14.1 g/dl (14.0-17.9); LYMPHOCYTES # (AUTO) 1.1 X10'3 (1.1-4.8); MEAN CORPUSCULAR HEMOGLOBIN 35.7 PG (27.0-31.0); MEAN CORPUSCULAR HGB CONC 33.7 g/dL (33.0-36.5); MEAN CORPUSCULAR VOLUME 105.8 FL (78-98); MEAN PLATELET VOLUME 7.2 FL (7.4-10.4); MONOCYTES # (AUTO) 0.4 X10'3 (0-0.9); MONOCYTES % (AUTO) 11.1 % (2-12); NEUTROPHILS # (AUTO) 2.3 X10'3 (1.8-7.7); NEUTROPHILS % (AUTO) 58.9 % (42-75); PLATELET COUNT 124 X10'3 (140-440); RED BLOOD COUNT 3.96 X10'6 (4.70-6.10); RED CELL DISTRIBUTION WIDTH 16.6 % (11.5-14.5)
[2024-06-25 03:49] LABS: ALANINE AMINOTRANSFERASE 45 U/L (12-78); ALBUMIN 3.1 G/DL (3.4-5.0); ALBUMIN/GLOBULIN RATIO 0.7 (1.1-1.5); ALKALINE PHOSPHATASE 206 IU/L (46-116); ANION GAP 15 (8-16); ASPARTATE AMINO TRANSFERASE 71 U/L (10-37); BLOOD UREA NITROGEN 10 MG/DL (7-18); BUN/CREATININE RATIO 10.2 (10.0-20.0); CALCIUM 8.7 MG/DL (8.5-10.1); CHLORIDE 105 MMOL/L (99-107); CREATININE 0.98 MG/DL (0.60-1.10); GLUCOSE 99 MG/DL (70-104); POTASSIUM 3.7 MMOL/L (3.5-5.1); PRO BRAIN NATRIURETIC PEPTIDE 562 PG/ML (0-125); SODIUM 142 MMOL/L (135-145); TOTAL CARBON DIOXIDE 22.4 MMOL/L (24-32); TOTAL PROTEIN 7.7 G/DL (6.4-8.2); eCRCL 73 ML/MIN; eGFR 77 ML/MIN
--- NOTE | 2024-06-25 03:51 | RADIOLOGY REPORT ---
CHEST RADIOGRAPH Indication: CP Technique: Single frontal view of the chest was obtained COMPARISON: DI CHEST,SINGLE VIEW on DOS: 06/20/24, DI CHEST,SINGLE VIEW on DOS: 01/27/24 FINDINGS: Lines and Tubes: None Lungs: Clear Pleura: No effusion. No pneumothorax. Cardiomediastinal contours: Unremarkable Bones: Unremarkable IMPRESSION: 1. No acute disease.
--- NOTE | 2024-06-25 05:07 | Physician Documentation ---
History of Present Illness ~ Chief Complaint: Shortness of Breath Stated Complaint: SOB Time Seen by MD: 04:45 Primary Medical Doctor: Hospitalist/Resident Service HPI 63-year-old male history of bilateral pulmonary embolism, intracardiac atrial thrombus, chronic alcohol abuse, liver cirrhosis, chronic CHF, chronic pain presenting for shortness of breath. He was discharged yesterday and was feeling well tonight he woke with increasing shortness of breath. Denies cough denies wheezing denies fever chills Medication Reconciliation Allergies: Coded Allergies: No Known Allergies (Unverified , 01/27/24) Scheduled Amoxicillin (Amoxicillin), 1 CAP PO TID, (Reported) Apixaban (Eliquis), 5 MG PO BID Discontinued Medications Acetaminophen (Tylenol), 1 TABLET PO Q4HPRN PRN for pain, (Reported) Discontinued Reason: patient no longer taking Lactulose (Lactulose), 30 ML PO QAM, (Reported) Discontinued Reason: patient no longer taking [Ibuprofen], PO for pain, (Reported) Discontinued Reason: patient no longer taking Past Medical History Past Medical History: Anxiety, Depression Past Surgical History: orthopedic surgeries Alcohol Use: None Drug Use: none Lives In: Home Review of Systems All Other Systems at this time: Reviewed and Negative Cardiovascular: Denies: chest pain Physical Exam Vital Signs: Heart Rate: 94, Respiratory Rate: 26, BP: 108/86, Pulse Oximetry: 94, Weight: 68.000 Oxygen Flow Rate: 4.0 Physical Exam Nontoxic Pulmonary clear to auscultation bilaterally Cardiac no murmur Abdomen soft nontender Lower extremity no edema Progress Results/Orders Results/Orders Orders - ADIEL NOBLE MD Chest,Single View (06/25/24 03:10) Monitor (06/25/24 03:02) Saline Lock (06/25/24 03:02) Oxygen (06/25/24 03:02) Hs Troponin I W Calculations (06/25/24 06:02) Completed Orders - ADIEL NOBLE MD Chest,Single View (06/25/24 03:10) Cbc/Diff (06/25/24 03:02) PBNP (06/25/24 03:02) Electrocardiogram (06/25/24 03:02) CMP (06/25/24 03:02) Hs Troponin I W Calculations (06/25/24 03:02) Hs Troponin I W Calculations (06/25/24 05:02) Epinephrine Inj (Adrenalin Inj) (06/25/24 05:20) Diphenhydramine Inj (Benadryl Inj.) (06/25/24 05:20) Famotidine/Pf Iv Inj (Pepcid Iv Inj) (06/25/24 05:20) Dexamethasone Inj (Decadron 4mg/Ml Inj) (06/25/24 05:20) Normal Saline 1000ml (Sodium Chloride 10 (06/25/24 05:19) Lorazepam Inj (Ativan Inj) (06/25/24 06:05) Vital Signs 06/25/24 06/25/24 06/25/24 06/25/24 03:10 06:38 06:43 07:39 Pulse 94 98 84 Resp 26 26 26 21 B/P (MAP) 108/86 99/71 (80) 106/74 Pulse Ox 94 92 97 O2 Flow Rate 4.0 6.0 Laboratory Tests Test 06/25/24 03:22 06/25/24 07:03 White Blood Count 4.0 L Red Blood Count 3.96 L Hemoglobin 14.1 Hematocrit 41.9 L Mean Corpuscular Volume 105.8 H Mean Corpuscular Hemoglobin 35.7 H Mean Corpuscular Hemoglobin Concent 33.7 Red Cell Distribution Width 16.6 H Platelet Count 124 L Mean Platelet Volume 7.2 L Neutrophils (%) (Auto) 58.9 Lymphocytes (%) (Auto) 28.0 Monocytes (%) (Auto) 11.1 Eosinophils (%) (Auto) 1.0 Basophils (%) (Auto) 1.0 Neutrophils # (Auto) 2.3 Lymphocytes # (Auto) 1.1 Monocytes # (Auto) 0.4 Eosinophils # (Auto) 0.0 Basophils # (Auto) 0.0 CBC Comment Sodium Level 142 Potassium Level 3.7 Chloride Level 105 Carbon Dioxide Level 22.4 L Anion Gap 15 Blood Urea Nitrogen 10 Creatinine 0.98 Estimated GFR/1.73 m2 77 BUN/Creatinine Ratio 10.2 Glucose Level 99 Calcium Level 8.7 Total Bilirubin 1.0 Aspartate Amino Transf (AST/SGOT) 71 H Alanine Aminotransferase (ALT/SGPT) 45 Alkaline Phosphatase 206 H Troponin I High Sensitivity 51 167 *H Pro-B-Type Natriuretic Peptide 562 H Total Protein 7.7 Albumin 3.1 L Globulin 4.6 H Albumin/Globulin Ratio 0.7 L Chemistry Comments Troponin I High Sens Percent Delta 227 Troponin I Hi Sens Absolute Change 116 EKG/XRAY/CT/US/VASC/MRI EKG : Additional Comment EKG independently interpreted by myself time 3:10 a.m. indication shortness of breath normal sinus rhythm rate 91 normal axis normal intervals no ST or T-wave abnormalities Chest X-Ray : Additional Comments Chest x-ray independently interpreted by myself shows no pneumothorax no consolidation no effusion Medical Decision Making Additional info obtained from: old records Additional Infomation Pulmonary embolism, DVT, COPD, CHF exacerbation Departure Disposition: HOME / SELF CARE / HOMELESS Impression: Primary Impression: Bilateral pulmonary embolism Additional Impression Text Patient presents for acute episode of shortness of breath. He was just discharged yesterday for pulmonary embolism and is anticoagulated. He initially presented tachypneic with borderline hypoxia however he spontaneously resolved after falling asleep and getting some Ativan. His O2 saturation did normalize is DC resolved. EKG nonischemic Additional Instructions: Continue taking your Eliquis as prescribed. Return to the emergency department if you have any reoccurrence of your shortness of breath Referrals: NO PRIMARY CARE PROVIDER (PCP) Signature Scribe Signature: na Attestation: ADIEL Mcnally MD June 25, 2024 05:07
[2024-06-25] MEDS ORDERED: normal saline 1000ML IV soln IVB STA (05:19)
[2024-06-25] MEDS ORDERED: epiNEPHrine 1 mg/ml inj SQ ONE (05:20)
[2024-06-25] MEDS ORDERED: diphenhydrAMINE 50 mg/ml inj IV ONE (05:20)
[2024-06-25] MEDS ORDERED: famotidine/PF 10 mg/ml inj IV ONE (05:20)
[2024-06-25] MEDS ORDERED: dexamethasone 4mg/ml inj IV ONE (05:20)
[2024-06-25] MEDS: LORazepam 2 mg/ml vial IV ONE (06:05)
[2024-06-25 07:39] VITALS: BP 106/74; PULSE 84; RESP 21; O2SAT 97
== END 2024-06-25 07:41 | disposition home or self-care (01) ==
LOC: ER 03:01
DX: I26.99 Other pulmonary embolism without acute cor pulmonale (principal); I50.9 Heart failure, unspecified
CPT/HCPCS: 36415; 71045; 80053; 83880; 84484; 85025; 93005; 99285